=== PATIENT | female | born 1955 | race Hispanic/Latino ===

== ENCOUNTER → 2018-12-14 | Outpatient (CLI) | payer BC ==
--- NOTE | 2018-12-15 18:12 | Diagnostic Imaging Report ---
Renal Scan with Lasix Washout Clinical information: UTI; renal calculi Technique: Following intravenous administration of 11 mCi of Tc-99m MAG3, dynamic images of the kidneys in the posterior projection were obtained through 40 minutes. Lasix 40 mg was administered intravenously at 10 minutes post injection of the tracer. Report: Left kidney: Perfusion of the left kidney is prompt. The kidney has a distorted reniform shape with mild thinning of the renal cortex. Extraction of tracer from the blood pool is decreased. Clearance of tracer from the renal parenchyma is begins promptly but is not complete by the end of the study. The pelvicalyceal system appears dilated, however, tracer does not pool within the calices or renal pelvis. Drainage of tracer from the pelvicalyceal system is prompt and adequate prior to administration of Lasix. No significant stasis of tracer is seen within the left ureter. Right kidney: Perfusion to the right kidney is prompt. The right kidney has a rounded non-reniform shape with absence of renal parenchyma in the lower pole and reduced renal parenchyma in the upper pole. Extraction of tracer by the renal parenchyma is decreased.. Clearance of tracer from the renal parenchyma begins promptly but is not complete by the end of the study. The pelvicalyceal system is not dilated. Some pooling of tracer is seen in an upper pole calyx as well as in a lower pole calyx but no increased pooling of tracer is seen inn the renal pelvis. Some drainage of tracer from the pelvicalyceal system is seen prior to administration of Lasix. Washout of tracer from the pelvicalyceal system following administration of Lasix is adequate but then the time-activity curve hits a plateau due to retained tracer in the renal parenchyma. No significant stasis of tracer is seen within the right ureter. Differential renal function: The left kidney contributes 72% of total renal function and the right kidney contributes 28% (normal 43-57%). Impression: 1. 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 Medical renal disease is also present. Mild hydronephrosis is present although renal calculus is also suspected. No physiologically significant obstruction of the renal collecting system is present. 2. 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 Loss of renal parenchyma is greater in the right kidney compared to the left kidney and this accounts for the decreased differential renal function of 28% Medical renal disease is also present. No hydronephrosis is present. No physiologically significant obstruction of the renal collecting system is present. Signed by: Dr. Jodi Vargas M.D. on 12/15/2018 6:09 PM
== END ==
LOC: NM 14:25
PROVIDERS: ATTEND Urology
DX: N20.0 Calculus of kidney (principal); N39.0 Urinary tract infection, site not specified
CPT/HCPCS: 78708; A9562

== ENCOUNTER 2020-11-01 11:14 | Emergency (ER) | payer BC, MEDICARE ==
[~2020-11-01] VITALS: Ht 152.4 cm; Wt 87.5 kg
[2020-11-01] MEDS ORDERED: MORPHINE SULFATE INJ 2 MG/ML SYR IV STA (11:26)
[2020-11-01] MEDS ORDERED: SODIUM CHLORIDE 0.9% 1000ML 1,000 ML IV STA ×2 (11:26→12:25)
[2020-11-01] MEDS ORDERED: ONDANSETRON HCL INJ 2MG/ML 2ML 2 MG/ML VIAL IV STA (11:26)
[2020-11-01] MEDS ORDERED: PIPERACILLIN/TAZOBAC 3.375 GM in SODIUM CHLORIDE 0.9% 50ML 50 ML IV ONE (12:00)
[2020-11-01 12:04] LABS: BASOPHILS # (AUTO) 0.1 (0.0-0.1); BASOPHILS % 0.4 % (0.0-1.0); EOSINOPHILS # (AUTO) 0.1 (0.0-0.4); EOSINOPHILS % 0.5 % (0.0-6.0); HEMATOCRIT 29.9 % (34.2-44.1); HEMOGLOBIN 9.1 g/dL (12.0-16.0); LYMPHOCYTES # (AUTO) 1.9 (1.0-3.2); LYMPHOCYTES % 12.4 % (18.0-39.1); MEAN CORPUSCULAR HEMOGLOBIN 26.1 pg (28-32); MEAN CORPUSCULAR HGB CONC 30.4 g/dL (31-35); MEAN CORPUSCULAR VOLUME 85.7 fL (81-99); MONOCYTES # (AUTO) 0.9 (0.2-0.8); NEUTROPHILS # (AUTO) 12.3 (2.1-6.9); NEUTROPHILS % 80.3 % (38.7-80.0); PLATELET COUNT 294 x10e3/uL (140-360); RED BLOOD COUNT 3.49 x10e6/uL (3.6-5.1); RED CELL DISTRIBUTION WIDTH 15.2 % (11.7-14.4)
[2020-11-01 12:07] LABS: COLOR,URINE YELLOW (YELLOW)
[2020-11-01 12:08] LABS: CLARITY,URINE CLOUDY (CLEAR); KETONES,URINE NEGATIVE (NEGATIVE); LEUKOCYTE ESTERASE ,URINE TRACE (NEGATIVE); NITRITE,URINE POSITIVE (NEGATIVE); PROTEIN,URINE DIPSTICK 1+ (NEGATIVE); URINE UROBILINOGEN 0.2 mg/dL (0.2 - 1)
[2020-11-01 12:14] LABS: BACTERIA,URINE MANY /HPF; WBC,URINE (MAN) 21-50 /HPF (0-5)
[2020-11-01 12:15] LABS: EPITHELIAL CELLS,URINE FEW /LPF
[2020-11-01 12:19] LABS: ALBUMIN 3.1 g/dL (3.5-5.0); ALBUMIN/GLOBULIN RATIO 0.7 (0.8-2.0); ANION GAP 21.3 mmol/L (8-16); CALCIUM 8.9 mg/dL (8.4-10.2); CREATININE, SERUM 2.35 mg/dL (0.57-1.11); POTASSIUM 5.3 mmol/L (3.5-5.1)
[2020-11-01 12:25] LABS: CREATINE KINASE MB 0.6 ng/mL (0-5.0)
[2020-11-01] MEDS ORDERED: INSULIN REGULAR, HUMAN 100 UNIT/1 ML 3ML VIAL IV ONE (12:30)
[2020-11-01 12:47] LABS: PARTIAL THROMBOPLASTIN TIME 26.9 seconds (23.8-35.5); PROTHROMBIN TIME 13.8 seconds (11.9-14.5)
[2020-11-01 13:05] LABS: ALBUMIN 3.2 g/dL (3.5-5.0); ALBUMIN/GLOBULIN RATIO 0.7 (0.8-2.0); CALCIUM 8.8 mg/dL (8.4-10.2); CREATININE, SERUM 2.37 mg/dL (0.57-1.11)
[2020-11-01 13:16] LABS: LYMPHOCYTES % (MANUAL) 20 % (19-48); MONOCYTES % (MANUAL) 10 % (3.4-9.0); NEUTROPHILS % (MANUAL) 70 % (40-74)
[2020-11-01 13:17] LABS: HYPOCHROMASIA FEW; MICROCYTOSIS FEW; PLATELET ESTIMATE ADEQUATE; PLATELET MORPHOLOGY COMMENT NORMAL; RBC MORPHOLOGY COMMENT ABNORMAL
[2020-11-01] MEDS ORDERED: VANCOMYCIN 1GM/NS 250 ML 250 ML IV STA (15:20)
== END 2020-11-01 17:36 | disposition other institution (70) ==
LOC: ER 11:20
DX: U07.1 COVID-19 (principal); R65.20 Severe sepsis without septic shock; K65.1 Peritoneal abscess; N39.0 Urinary tract infection, site not specified; E11.65 Type 2 diabetes mellitus with hyperglycemia; E78.5 Hyperlipidemia, unspecified
CPT/HCPCS: 36415; 74176; 80053; 81001; 82550; 82553; 82948; 83605; 84484; 85025; 85610; 85730; 87040; 87071; 87086; 87186; 87205; 99284; J1817; J2270; J2405; J2543; J3370; J7030; U0002

== ENCOUNTER 2020-12-12 19:00 | Emergency (ER) | payer MEDICARE ==
[~2020-12-12] VITALS: Ht 152.4 cm; Wt 87.5 kg
[2020-12-12 19:36] LABS: BASOPHILS % 0.3 % (0.0-1.0); EOSINOPHILS # (AUTO) 0.2 (0.0-0.4); EOSINOPHILS % 2.3 % (0.0-6.0); HEMATOCRIT 32.7 % (34.2-44.1); HEMOGLOBIN 10.3 g/dL (12.0-16.0); LYMPHOCYTES # (AUTO) 2.1 (1.0-3.2); LYMPHOCYTES % 22.3 % (18.0-39.1); MEAN CORPUSCULAR HEMOGLOBIN 26.5 pg (28-32); MEAN CORPUSCULAR HGB CONC 31.5 g/dL (31-35); MEAN CORPUSCULAR VOLUME 84.1 fL (81-99); MONOCYTES # (AUTO) 0.6 (0.2-0.8); MONOCYTES % 6.6 % (4.4-11.3); NEUTROPHILS # (AUTO) 6.4 (2.1-6.9); NEUTROPHILS % 68.2 % (38.7-80.0); PLATELET COUNT 390 x10e3/uL (140-360); RED BLOOD COUNT 3.89 x10e6/uL (3.6-5.1); RED CELL DISTRIBUTION WIDTH 15.6 % (11.7-14.4)
[2020-12-12 19:56] LABS: ALBUMIN 3.5 g/dL (3.5-5.0); ALBUMIN/GLOBULIN RATIO 0.7 (0.8-2.0); ANION GAP 18.7 mmol/L (8-16); CREATININE, SERUM 2.91 mg/dL (0.57-1.11); POTASSIUM 4.7 mmol/L (3.5-5.1)
[2020-12-12] MEDS ORDERED: SODIUM CHLORIDE 0.9% 1000ML 1,000 ML IV STA (20:08)
[2020-12-12] MEDS ORDERED: INSULIN REGULAR, HUMAN 100 UNIT/1 ML 3ML VIAL IV ONE (20:45)
[2020-12-12 22:29] LABS: ANION GAP 18.2 mmol/L (8-16); CALCIUM 8.1 mg/dL (8.4-10.2); CREATININE, SERUM 2.61 mg/dL (0.57-1.11); POTASSIUM 4.2 mmol/L (3.5-5.1)
[2020-12-13 05:33] VITALS: BP 142/65
== END 2020-12-13 03:00 | disposition home or self-care (01) ==
LOC: ER 19:12
DX: Z48.01 Encounter for change or removal of surgical wound dressing (principal); E11.65 Type 2 diabetes mellitus with hyperglycemia; I10 Essential (primary) hypertension; E78.5 Hyperlipidemia, unspecified; E03.9 Hypothyroidism, unspecified; Z20.822 Contact with and (suspected) exposure to COVID-19
CPT/HCPCS: 36415; 74176; 80048; 80053; 82948; 85025; 99284; J1817; J7030; U0002

== ENCOUNTER 2024-09-07 13:19 | Emergency (ER) | payer MEDICARE ==
[~2024-09-07] VITALS: Ht 152.4 cm; Wt 84.8 kg
[2024-09-07] MEDS ORDERED: TYLENOL325 MG PO (14:04)
[2024-09-07] MEDS: ACETAMINOPHEN 325 MG TAB PO ONE (14:05)
[2024-09-07 14:48] VITALS: PULSE 84; RESP 16; TEMP 97.7; O2SAT 99
== END 2024-09-07 14:48 | disposition home or self-care (01) ==
LOC: FSED 13:27
DX: M25.532 Pain in left wrist (principal); M19.032 Primary osteoarthritis, left wrist; I10 Essential (primary) hypertension; E11.9 Type 2 diabetes mellitus without complications; E78.5 Hyperlipidemia, unspecified; E03.9 Hypothyroidism, unspecified; Z99.3 Dependence on wheelchair
CPT/HCPCS: 99284